=== PATIENT | male | born 1950 | race Hispanic/Latino ===

== ENCOUNTER 2020-01-22 07:38 | Inpatient (IN) | payer OTHER ==
[2020-01-18 13:16] LABS: BASOPHILS % (AUTO) 0.4 % (0.0-5.0); EOSINOPHILS % (AUTO) 0.9 % (0.0-8.0); LYMPHOCYTES % (AUTO) 16.7 % (21.0-51.0); MEAN CORPUSCULAR HEMOGLOBIN 31.8 pg (27.0-33.0); MEAN CORPUSCULAR HGB CONC 34.1 g/dL (32.0-36.0); MEAN CORPUSCULAR VOLUME 93.1 fL (79-99); MONOCYTES % (AUTO) 6.3 % (3.0-13.0); NEUTROPHILS % (AUTO) 75.2 % (40.0-77.0); PLATELET COUNT (AUTO) 236 K/uL (130-400); RED BLOOD CELL COUNT(AUTO) 4.94 MIL/uL (4.50-6.20); RED CELL DISTRIBUTION WIDTH 12.1 % (11.0-15.5)
[2020-01-18 13:29] LABS: INR 0.94 (0.85-1.15); PARTIAL THROMBOPLASTIN TIME 22.1 SEC (26.3-35.5); PROTHROMBIN TIME 10.2 SEC (9.6-11.6)
[2020-01-18 13:32] LABS: ALBUMIN 3.8 g/dL (3.5-5.0); CREATININE 1.2 mg/dL (0.5-1.5); TOTAL PROTEIN, SERUM 7.9 g/dL (6.0-8.3)
[2020-01-21 10:40] VITALS: BP 123/73
[~2020-01-22] VITALS: Ht 162.6 cm; Wt 79.7 kg
[2020-01-22] VITALS (23 sets, daily range): BP systolic 102–179; BP diastolic 62–93
[~2020-01-22 07:38] MED LIST: ASPI-556 PO; ATOR-2 PO; CEFUROXIME SODIUM 1.5 GM VIAL IVP SCH; CLOP75TA14 PO; CYAN100T45 PO; ENAL5TAB17 PO; ISOS20TA7 PO; METF-446 PO; METO-408 PO
[2020-01-22] MEDS ORDERED: SODIUM CHLORIDE 0.9% 1000ML 1,000 ML IV ONE (08:44)
[2020-01-22] MEDS ORDERED: CEFAZOLIN SODIUM 1 GM VIAL ONE ×2 (08:44→12:42)
[2020-01-22] MEDS ORDERED: DEXAMETHASONE SOD PHOSPHATE 10MG/ML 1ML VIAL ONE (12:35)
[2020-01-22] MEDS ORDERED: SUCCINYLCHOLINE CHLORIDE 20 MG/ML 10 ML VIAL ONE ×2 (12:35→12:36)
[2020-01-22] MEDS ORDERED: ONDANSETRON HCL 4 MG/2 ML VIAL ONE (12:35)
[2020-01-22] MEDS ORDERED: LIDOCAINE PF 2% 5ML ABBOJECT ONE ×2 (12:35→12:36)
[2020-01-22] MEDS ORDERED: PROPOFOL 10 MG/ML 20ML VIAL IV ONE (12:35)
[2020-01-22] MEDS ORDERED: NEOSTIGMINE 5MG/5ML SYR IV ONE (12:36)
[2020-01-22] MEDS ORDERED: MIDAZOLAM HCL 1 MG/ML 2ML VIAL ONE (12:36)
[2020-01-22] MEDS ORDERED: FENTANYL CITRATE PF 50 MCG/1 ML 2ML VIAL ONE (12:36)
[2020-01-22] MEDS ORDERED: ROCURONIUM 10MG/1ML SYR 10 MG/ML ML ONE (12:36)
[2020-01-22] MEDS ORDERED: GLYCOPYRROLATE 1 MG/5 ML SYRINGE ONE (12:36)
[2020-01-22] MEDS ORDERED: PHENYLEPHRINE HCL 10 MG/ML 1ML VIAL IV ONE (12:55)
[2020-01-22] MEDS ORDERED: ATROPINE SULFATE 0.1 MG/ML 10 ML SYG IVP ONE (13:25)
[2020-01-22] MEDS ORDERED: NOREPINEPHRINE BITARTRATE 1 MG/1 ML ML IV ONE (13:55)
[2020-01-22] MEDS ORDERED: ACETAMINOPHEN 325 MG TAB PO PRN (14:00)
[2020-01-22] MEDS ORDERED: Q-PUMP 1 EACH IRRIG SCH (14:00)
[2020-01-22] MEDS ORDERED: CEFAZOLIN SODIUM 1 GM VIAL IRRIG ONE (14:05)
[2020-01-22] MEDS ORDERED: ROPIVACAINE 0.5% 5MG/ML 30ML IJ ONE (14:07)
[2020-01-22] MEDS ORDERED: MEPERIDINE-PF 25 MG/ML SYG ONE ×3 (14:39→15:14)
[2020-01-22] MEDS ORDERED: ROPIVACAINE 0.2% 2MG/ML 100ML VIAL IJ ONE (15:00)
[2020-01-22] MEDS ORDERED: MORPHINE SULFATE 2 MG/ML 1ML SYG ONE (15:47)
--- NOTE | 2020-01-22 17:30 | NUR ---
POST PROCEDURE RECEIVED PT FROM RECOVERY, IN SEMI CASTLE'S POSITION, ASLEEP BUT AROUSEABLE, A&OX3, C/O INCISIONAL AND RT FLANK PAIN. CHEST TUBE DRESSING DRY AND INTACT BUT SUBCUTANEOUS EMPHYSEMA PALPATED PROXIMAL TO INCISION, CHEST TUBE WITH SANGUINEOUS DRAINAGE IN ATRIUM WITH INTERMITTENT BUBBLING. Q PUMP IN PLACE, TONGUE MIDLINE, TIMBER ROBBER STRENGTH AND RESISTANCE WEAK TO ALL EXTREMITIES, INFORMED PATIENT AND SISTER AT BEDSIDE OF PAIN AND CHEST TUBE MANAGEMENT SHORT TERM GOALS, PT C/O PAIN 10/10 BUT QUICKLY RETURNS TO SLEEP. VANCE CATH IN PLACE AND SECURED, CALL LIGHT WITHIN REACH, FAMILY AT BEDSIDE.
[2020-01-22] MEDS ORDERED: PHARMACY COMMUNICATION MISC SCH (18:45)
[2020-01-22] MEDS: CEFAZOLIN SODIUM 1 GM VIAL IVP SCH (20:19)
[2020-01-22] MEDS: TRAMADOL HCL 50 MG TABLET PO PRN (20:19)
[2020-01-23] VITALS (7 sets, daily range): BP systolic 101–145; BP diastolic 57–83
[2020-01-23] MEDS: CEFAZOLIN SODIUM 1 GM VIAL IVP SCH ×2 (06:29→14:25)
[2020-01-23] MEDS: TRAMADOL HCL 50 MG TABLET PO PRN (07:33)
[2020-01-23] MEDS ORDERED: NON-FORMULARY MEDICATION 1 EACH (Metoprolol Succinate 25 MG) PO SCH (09:00)
[2020-01-23] MEDS ORDERED: NON-FORMULARY MEDICATION 1 EACH (Atorvastatin Calcium 80 MG) PO SCH (09:00)
[2020-01-23] MEDS ORDERED: NON-FORMULARY MEDICATION 1 EACH (Metformin HCl 1,000 MG) PO SCH (09:00)
[2020-01-23] MEDS: ASPIRIN 81 MG EC TAB PO SCH (10:41)
[2020-01-23] MEDS: CLOPIDOGREL BISULFATE 75 MG TAB PO SCH (10:41)
[2020-01-23] MEDS: METOPROLOL SUCCINATE 50 MG TAB.SR.24H PO SCH (10:42)
[2020-01-23] MEDS: METFORMIN HCL 500 MG TABLET PO SCH (10:42)
[2020-01-23] MEDS: ENALAPRIL MALEATE 5 MG TAB PO SCH (10:42)
[2020-01-23] MEDS: ATORVASTATIN CALCIUM 40 MG TABLET PO SCH (10:43)
[2020-01-23] MEDS ORDERED: CEFAZOLIN SODIUM 1 GM VIAL ONE ×2 (14:11→14:20)
[2020-01-23] MEDS: ISOSORBIDE MONONITRATE 20 MG TABLET PO SCH (14:24)
[2020-01-23] MEDS: CYANOCOBALAMIN (VITAMIN B-12) 100 MCG TABLET PO SCH (14:25)
[2020-01-23] MEDS: KETOROLAC TROMETHAMINE 30MG/ML IV PRN (14:26)
[2020-01-23] MEDS ORDERED: SERT50TA12 PO (19:38)
[2020-01-24] VITALS (7 sets, daily range): BP systolic 101–134; BP diastolic 54–73
[2020-01-24] MEDS: KETOROLAC TROMETHAMINE 30MG/ML IV PRN (00:14)
[2020-01-24] MEDS: TRAMADOL HCL 50 MG TABLET PO PRN ×2 (06:56→18:51)
--- NOTE | 2020-01-24 08:00 | NUR ---
ASSESSMENT PT IS AAOX3 DENIES CP DENIES SOB DENIES NV NO COMPLAINTS AT THIS TIME. BREATHING PATTERN IS EVEN AND UNLABORED. NOTED RIGHT SIDE CHEST TUBE IN PLACE SECURED, CONNECTED TO ATRIUM COLLECTION. NOTED QPUMP IN PLACE WELL. ENCOURAGED COUGH AND DEEP BREATHING WITH SPLINTING, ENCOURAGED USE OF IS 1OXS Q1HR WHILE AWAKE. CALL LIGHT WITHIN REACH.
[2020-01-24] MEDS: ASPIRIN 81 MG EC TAB PO SCH (08:23)
[2020-01-24] MEDS: METFORMIN HCL 500 MG TABLET PO SCH (08:24)
[2020-01-24] MEDS: CLOPIDOGREL BISULFATE 75 MG TAB PO SCH (08:25)
[2020-01-24] MEDS: ATORVASTATIN CALCIUM 40 MG TABLET PO SCH (08:25)
[2020-01-24] MEDS: CYANOCOBALAMIN (VITAMIN B-12) 100 MCG TABLET PO SCH (08:26)
[2020-01-24] MEDS: METOPROLOL SUCCINATE 50 MG TAB.SR.24H PO SCH (09:00)
[2020-01-24] MEDS: ENALAPRIL MALEATE 5 MG TAB PO SCH (09:00)
[2020-01-24] MEDS: ISOSORBIDE MONONITRATE 20 MG TABLET PO SCH (09:00)
--- NOTE | 2020-01-24 14:44 | NUR ---
DR CHANCE ROUNDED SAW PATIENT ORDERS RECEIVED
--- NOTE | 2020-01-24 14:53 | NUR ---
QPUMP/RIGHT CORDIS DC QPUMP DC CATH TIP INTACT. NO COMPLAINTS. RIGHT IJ CORDIS DC, CATH TIP INTACT. DRESSING APPLIED.
--- NOTE | 2020-01-24 16:34 | NUR ---
MET W PATIENT AT BEDSIDE FOR DC PLANNING IS FROM [place] AND GOES TO [place] IN [place]. STATS LIVES ALONE AND USES A CANE BUT IT OTHERWISE INDEPENDENT. [place], SO WHEN HE NEEDED THIS SURGERY, IT WAS ARRANGED HE SHOULD COME HERE TO STAY WITH FAMILY AFTERWARDS. SON AND DAUGHTER IN [place] SISTER LIVES IN [place], WILL GO STAY WITH SISTER. SISTER IS DISABLE, HAS A HANDICAPPED BATHROOM. DOES NOT WANT TO GO TO A [facility],WILL WANT TO GO HOME TO [place] SOON AT THE MD CLEARS HIM. CM TO FOLLOW Addendum: 01/24/20 at 1637 by GOMEZ GALARZA RN CM Amended: Links added.
[2020-01-25 04:05] VITALS: BP 135/67
--- NOTE | 2020-01-25 07:50 | NUR ---
ASSESSMENT ENCOUNTERED PT A&OX3, CALM COOPERATIVE AND DOES NOT APPEAR TO BE IN ANY DISTRESS NOR ANY NEURO DEFICITS PRESENT. PT DOES C/O RT FLANK INCISION PAIN, CHEST TUBE INCISION SITE DRY AND INTACT, NO SUBCUTANEOUS EMPHYSEMA PALPATED, NO LEAK VISUALIZED IN CHEST TUBE ATRIUM, SEROSANGUINEOUS DRAINAGE IN ATRIUM. PT IS ABLE TO TOLERATE FOODS, FLUID AND MEDICATION WITH NO THROAT CLEARING OR COUGH. CALL LIGHT WITHIN REACH.
[2020-01-25 08:00] VITALS: BP 125/65
[2020-01-25] MEDS: ATORVASTATIN CALCIUM 40 MG TABLET PO SCH (09:17)
[2020-01-25] MEDS: ENALAPRIL MALEATE 5 MG TAB PO SCH (09:18)
[2020-01-25] MEDS: CYANOCOBALAMIN (VITAMIN B-12) 100 MCG TABLET PO SCH (09:18)
[2020-01-25] MEDS: METFORMIN HCL 500 MG TABLET PO SCH (09:18)
[2020-01-25] MEDS: TRAMADOL HCL 50 MG TABLET PO PRN ×2 (09:19→16:37)
[2020-01-25] MEDS: METOPROLOL SUCCINATE 50 MG TAB.SR.24H PO SCH (09:21)
--- NOTE | 2020-01-25 11:00 | NUR ---
DC CHEST TUBE/VANCE CATH PER DR CHANCE ORDER, TOLERATED WELL, VASELINE DRESSING APPLIED, PT WILL BE DTV BY 1700, PT UNDERSTANDS INSTRUCTIONS. CALL LIGHT AND URINAL WITHIN REACH.
[2020-01-25 12:00] VITALS: BP 119/63
[2020-01-25] MEDS: CLOPIDOGREL BISULFATE 75 MG TAB PO SCH (12:36)
[2020-01-25] MEDS: ASPIRIN 81 MG EC TAB PO SCH (12:36)
[2020-01-25] MEDS: ISOSORBIDE MONONITRATE 20 MG TABLET PO SCH (12:37)
[2020-01-25 16:00] VITALS: BP 101/57
--- NOTE | 2020-01-25 17:15 | NUR ---
DUE TO VOID PT IS ONLY ABLE TO VOID <50ML OF URINE, POST VOID BLADDER SCAN 108ML, PT ABDOMEN SOFT, NONTENDER. PT STATES HE WILL ATTEMPT HIMSELF IN URINAL.
[2020-01-25 19:18] VITALS: BP 99/55
[2020-01-25] MEDS: KETOROLAC TROMETHAMINE 30MG/ML IV PRN (20:09)
[2020-01-25 23:19] VITALS: BP 121/64
[2020-01-26 03:11] VITALS: BP 139/75
[2020-01-26 05:38] LABS: HEMATOCRIT 38.1 % (42-54); MEAN CORPUSCULAR HEMOGLOBIN 31.3 pg (27.0-33.0); MEAN CORPUSCULAR HGB CONC 34.1 g/dL (32.0-36.0); MEAN CORPUSCULAR VOLUME 91.8 fL (79-99); RED BLOOD CELL COUNT(AUTO) 4.15 MIL/uL (4.50-6.20); RED CELL DISTRIBUTION WIDTH 11.9 % (11.0-15.5); WHITE BLOOD COUNT (AUTO) 8.1 K/uL (4.8-10.8)
[2020-01-26 06:11] LABS: ALBUMIN 2.4 g/dL (3.5-5.0); BILIRUBIN,TOTAL 0.8 mg/dL (0.2-1.0); POTASSIUM 3.7 mmol/L (3.5-5.1); TOTAL PROTEIN, SERUM 6.6 g/dL (6.0-8.3)
[2020-01-26 08:00] VITALS: BP 124/73
[2020-01-26] MEDS: ATORVASTATIN CALCIUM 40 MG TABLET PO SCH (09:36)
[2020-01-26] MEDS: METFORMIN HCL 500 MG TABLET PO SCH (09:36)
[2020-01-26] MEDS: CYANOCOBALAMIN (VITAMIN B-12) 100 MCG TABLET PO SCH (09:37)
[2020-01-26] MEDS: ASPIRIN 81 MG EC TAB PO SCH (09:37)
[2020-01-26] MEDS: ENALAPRIL MALEATE 5 MG TAB PO SCH (09:37)
[2020-01-26] MEDS: CLOPIDOGREL BISULFATE 75 MG TAB PO SCH (09:37)
[2020-01-26] MEDS: ISOSORBIDE MONONITRATE 20 MG TABLET PO SCH (09:38)
[2020-01-26] MEDS: METOPROLOL SUCCINATE 50 MG TAB.SR.24H PO SCH (09:38)
[2020-01-26 11:37] VITALS: BP 117/68
[2020-01-26 16:00] VITALS: BP 110/61
[2020-01-26 20:00] VITALS: BP 122/61
[2020-01-26] MEDS: TRAMADOL HCL 50 MG TABLET PO PRN (21:29)
[2020-01-26 23:54] VITALS: BP 136/72
[2020-01-27 04:00] VITALS: BP 127/67
[2020-01-27 07:58] VITALS: BP 141/63
[2020-01-27] MEDS: ENALAPRIL MALEATE 5 MG TAB PO SCH (09:05)
[2020-01-27] MEDS: ASPIRIN 81 MG EC TAB PO SCH (09:05)
[2020-01-27] MEDS: ATORVASTATIN CALCIUM 40 MG TABLET PO SCH (09:06)
[2020-01-27] MEDS: CLOPIDOGREL BISULFATE 75 MG TAB PO SCH (09:06)
[2020-01-27] MEDS: METFORMIN HCL 500 MG TABLET PO SCH (09:06)
[2020-01-27] MEDS: TRAMADOL HCL 50 MG TABLET PO PRN ×2 (09:16→17:02)
[2020-01-27] MEDS: CYANOCOBALAMIN (VITAMIN B-12) 100 MCG TABLET PO SCH (09:16)
[2020-01-27] MEDS: ISOSORBIDE MONONITRATE 20 MG TABLET PO SCH (09:17)
[2020-01-27] MEDS: METOPROLOL SUCCINATE 50 MG TAB.SR.24H PO SCH (09:18)
[2020-01-27 11:31] VITALS: BP 110/61
[2020-01-27 16:00] VITALS: BP_SYST 100; BP_SYST 117; BP_DIAS 54; BP_DIAS 65
--- NOTE | 2020-01-27 19:50 | NUR ---
patient with 2 loose stools, patient requesting anit-dirrheal medication. Dr Cheek called. returned call, wants to implement c diff protocol, and no meds at present.
[2020-01-27 20:39] VITALS: BP 151/75
[2020-01-27 23:20] VITALS: BP 125/69
[2020-01-28 03:53] VITALS: BP 137/80
[2020-01-28 08:00] VITALS: BP 122/74
[2020-01-28] MEDS ORDERED: PHARMACY COMMUNICATION MISC SCH (08:45)
[2020-01-28] MEDS ORDERED: COMPOUND PO MISCELLANEOUS 1 EACH MISC MISC PRN (09:00)
[2020-01-28] MEDS: CYANOCOBALAMIN (VITAMIN B-12) 100 MCG TABLET PO SCH (09:07)
[2020-01-28] MEDS: ATORVASTATIN CALCIUM 40 MG TABLET PO SCH (09:07)
[2020-01-28] MEDS: ISOSORBIDE MONONITRATE 20 MG TABLET PO SCH (09:08)
[2020-01-28] MEDS: ENALAPRIL MALEATE 5 MG TAB PO SCH (09:09)
[2020-01-28] MEDS: CLOPIDOGREL BISULFATE 75 MG TAB PO SCH (09:09)
[2020-01-28] MEDS: ASPIRIN 81 MG EC TAB PO SCH (09:09)
[2020-01-28] MEDS: METOPROLOL SUCCINATE 50 MG TAB.SR.24H PO SCH (09:10)
[2020-01-28] MEDS: METFORMIN HCL 500 MG TABLET PO SCH (09:10)
[2020-01-28] MEDS: VANCOMYCIN 250MG/5ML ORAL SOLUTION 40ML PO SCH ×6 (10:51→20:02)
[2020-01-28 12:00] VITALS: BP 136/64
[2020-01-28 12:04] LABS: HEMATOCRIT 38.5 % (42-54); MEAN CORPUSCULAR HEMOGLOBIN 31.7 pg (27.0-33.0); MEAN CORPUSCULAR HGB CONC 34.3 g/dL (32.0-36.0); MEAN CORPUSCULAR VOLUME 92.3 fL (79-99); RED BLOOD CELL COUNT(AUTO) 4.17 MIL/uL (4.50-6.20); RED CELL DISTRIBUTION WIDTH 11.9 % (11.0-15.5); WHITE BLOOD COUNT (AUTO) 9.5 K/uL (4.8-10.8)
--- NOTE | 2020-01-28 12:13 | NUR ---
CM Note: POC CM met with pt in room discussed POC. Pt verbalized he lives alone, but is able to do everything by himself. CM discussed MD recommendations. At this time pt declined placement, pt verbalized he will go home to his daughter first and stay with her until she is strong enough maybe until Tuesday and then he will drive back home to [place], [place]. Once he is back home, [facility] for possible [facility] health at home to check on him. Pt verbalized he's had home health before and [facility]. Pt verbalized he feels safe to go back home and will drive hopefully by next week, the Dr said it's ok for pt to drive. CM informed pt to follow up with [facility] for [facility] so that nurse can maybe check on pt st least once a week to make sure pt is ok. Pt verbalized understanding. Safe to dc home w/daughter via private car at this time once MD stable. Primary nurse Robert RN aware. DC plan to home. CM to continue to follow up.
[2020-01-28 16:00] VITALS: BP 127/67
[2020-01-28 19:47] VITALS: BP 125/66
[2020-01-28 23:37] VITALS: BP 122/63
--- NOTE | 2020-01-29 02:36 | NUR ---
PATIENT A/OX3. DENIES CHEST PAIN OR SOB. INCISION SITE APPROXIMATED, DRESSING CHANGED. NO S/S OF INFECTION. AMBULATES WITH STEADY GAIT. DIMINISHED BREATH SOUNDS TO LOWER LOBES. 1000 REACHED USING I.S. CALL LIGHT WITHIN PLACE. WILL CONTINUE TO MONITOR.
[2020-01-29] MEDS: VANCOMYCIN 250MG/5ML ORAL SOLUTION 40ML PO SCH ×4 (03:19→07:24)
[2020-01-29 04:00] VITALS: BP 116/63
[2020-01-29] MEDS: ATORVASTATIN CALCIUM 40 MG TABLET PO SCH (07:22)
[2020-01-29] MEDS: METOPROLOL SUCCINATE 50 MG TAB.SR.24H PO SCH (07:22)
[2020-01-29] MEDS: ISOSORBIDE MONONITRATE 20 MG TABLET PO SCH (07:22)
[2020-01-29] MEDS: ENALAPRIL MALEATE 5 MG TAB PO SCH (07:22)
[2020-01-29] MEDS: CLOPIDOGREL BISULFATE 75 MG TAB PO SCH (07:23)
[2020-01-29] MEDS: ASPIRIN 81 MG EC TAB PO SCH (07:23)
[2020-01-29] MEDS: METFORMIN HCL 500 MG TABLET PO SCH (07:23)
[2020-01-29] MEDS: CYANOCOBALAMIN (VITAMIN B-12) 100 MCG TABLET PO SCH (07:24)
--- NOTE | 2020-01-29 08:00 | NUR ---
ASSESSMENT PT IS AAOX3 DENIES CP DENIES SOB DENIES NV. NO COMPLAINTS AT THIS TIME. SITTING UPRIGHT IN BED. RIGHT LATERAL CHEST/RIBS INCISION OPEN TO AIR. INCISION IS WELL APPROXIMATED NO DEHISENCE NOTED. WNLS. CALL LIGHT WITHIN REACH.
[2020-01-29 08:30] VITALS: BP 112/66
[2020-01-29 12:10] VITALS: BP 100/51
--- NOTE | 2020-01-29 12:30 | NUR ---
DR BRIGHT ROUNDED SAW PATIENT, OK TO DC HOME TODAY
--- NOTE | 2020-01-29 13:00 | NUR ---
DISCHARGE DC INSTRUCTIONS GIVEN TO PATIENT. VERBALIZES UNDERSTANDING OF SAME HOME MEDICATIONS FOR DISCHARGE, AGREES TO KEEP FOLLOW UP APPOINTMENT WITH DR SOTELO. RIGHT CHEST TUBE SITE WITH SUTURE REMOVED, SITE IS WELL APPROXIMATED. ALL QUESTIONS ANSWERED AND PAPERWORK SIGNED. PIV REMOVED CATH TIP INTACT, TELE PACK REMOVED. ALL BELONGINGS GATHERED, AWAITING RIDE.
--- NOTE | 2020-01-29 13:57 | NUR ---
DISCHARGE TO HOME ALL BELONGINGS GATHERED, DOWN VIA WC WITH FAMILY AND NURSE AIDE.
--- NOTE | 2020-01-30 14:12 | NUR ---
Transitional Care - Post Discharge Note Spoke with patient at number listed. As per Mr Weems, he says he is doing well. He states he will be driving back home to [place] tomorrow, will [facility], and see his heart surgeon in that area (Dr Raúl Kaye). I advised Mr Weems that it would be best to keep his appointment with Dr Leon, but he is insistent on going back home to receive follow up care there. He stated that he has continued on his home medications as ordered. Patient denied, SOB, N/V/D, vertigo, headaches or fevers. Addendum: 01/30/20 at 1419 by RUMA KULKARNI Amended: Links added.
== END 2020-01-29 14:00 | disposition home or self-care (01) | DRG 164 ==
LOC: DAHIP 07:38 → 4DH 16:07
PROVIDERS: ADMIT Thoracic Surgery (Cardiothoracic Vascular Surgery); ATTEND Thoracic Surgery (Cardiothoracic Vascular Surgery)
PROC: 0BBF0ZZ Excision of Right Lower Lung Lobe, Open Approach (ICD-10-PCS; principal; 2020-01-22 12:45)
PROC: 0BBC0ZZ Excision of Right Upper Lung Lobe, Open Approach (ICD-10-PCS; 2020-01-22 12:45)
DX: C34.10 Malignant neoplasm of upper lobe, unspecified bronchus or lung (principal); E87.1 Hypo-osmolality and hyponatremia; I10 Essential (primary) hypertension; E11.9 Type 2 diabetes mellitus without complications; R09.02 Hypoxemia; E78.00 Pure hypercholesterolemia, unspecified; Z20.828 Contact with and (suspected) exposure to other viral communicable diseases; Z79.899 Other long term (current) drug therapy
CPT/HCPCS: 36415; 71045; 71046; 80053; 82948; 85025; 85027; 85610; 85730; 86850; 86900; 86901; 87493; 88307; 88311; 88312; 88341; 88342; 93005; 94010; 97039; A4606; A7048; G0378; J0330; J0461; J0690; J1100; J1885; J2001; J2175; J2250; J2370; J2405; J2704; J2710; J2795; J3010; J3370; J3490; J7030; U0003

== ENCOUNTER 2021-02-04 08:51 | Day surgery (SDC) | payer OTHER ==
[~2021-02-04] VITALS: Ht 162.6 cm; Wt 81.6 kg
[2021-02-04] VITALS (7 sets, daily range): BP systolic 126–155; BP diastolic 74–87
[~2021-02-04 08:51] MED LIST changes: -CEFUROXIME SODIUM 1.5 GM VIAL IVP SCH; -ISOS20TA7 PO; +ISOS20TA85 PO; +SERT-439 PO
[2021-02-04] MEDS ORDERED: 0.9%NACL 1000ML 1,000 ML IV ONE (10:49)
[2021-02-04] MEDS ORDERED: CHOLECALCIFEROL PO (11:03)
[2021-02-04] MEDS ORDERED: FENTANYL CITRATE PF 50 MCG/1 ML 2ML VIAL ONE (12:00)
[2021-02-04] MEDS ORDERED: PROPOFOL 10 MG/ML 20ML VIAL IV ONE ×2 (12:00→12:14)
== END 2021-02-04 13:15 | disposition home or self-care (01) ==
LOC: SUH 08:51 → DAH 08:51 → SUH 13:15
PROVIDERS: ATTEND Internal Medicine Gastroenterology
DX: K59.00 Constipation, unspecified (principal); Z20.822 Contact with and (suspected) exposure to COVID-19; K63.5 Polyp of colon; R19.7 Diarrhea, unspecified; R14.0 Abdominal distension (gaseous); K29.50 Unspecified chronic gastritis without bleeding; K57.30 Diverticulosis of large intestine without perforation or abscess without bleeding; I10 Essential (primary) hypertension; I25.10 Atherosclerotic heart disease of native coronary artery without angina pectoris; E66.01 Morbid (severe) obesity due to excess calories; E78.5 Hyperlipidemia, unspecified; E11.9 Type 2 diabetes mellitus without complications; Z86.711 Personal history of pulmonary embolism; Z79.01 Long term (current) use of anticoagulants; Z85.118 Personal history of other malignant neoplasm of bronchus and lung; Z95.1 Presence of aortocoronary bypass graft; Z85.048 Personal history of other malignant neoplasm of rectum, rectosigmoid junction, and anus; Z98.890 Other specified postprocedural states; Z95.5 Presence of coronary angioplasty implant and graft; Z79.899 Other long term (current) drug therapy; Z86.010 Personal history of colon polyps
CPT/HCPCS: 43239; 45380; 82948; 88305; 88342; A4215 ×2; A4221; A4222; A4223; A4606; A4620; A4663; J2704 ×2; J3010; J7030; 93005